=== PATIENT | male | born 1945 | race Caucasian/White ===

== ENCOUNTER → 2019-08-23 08:55 | Outpatient (CLI) | payer OTHER, SELFPAY ==
--- NOTE | 2019-08-23 09:05 | AAVD_ITS ---
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 in cross- Peak systolic flow velocities within the proximal sectional axis. aorta measure 55.4 cm/sec. Proximal aorta measures2.72cm. in longitudinal Peak systolic flow velocities within the mid aorta axis. measure 93.5 cm/sec. Mid aorta measures2.83 x 3.25cm. in cross- Peak systolic flow velocities within the distal sectional axis. aorta measure 73.7 cm/sec. Mid aorta measures3.17cm. in longitudinal axis. Distal aorta measures2.88 x 2.88cm. in cross- sectional axis. Distal aorta measures2.86cm. in longitudinal axis. Left Iliac Artery Left iliac artery measures 1.85 x 1.85 cm. in the cross-sectional axis. Left iliac artery measures 1.89 cm. in the longitudinal axis. Peak systolic velocity in the left iliac artery measures 100 cm/sec. Right Iliac Artery Right iliac artery measures 1.20 x 1.15 cm. in the cross-sectional axis. Right iliac artery measures 1.15 cm. in the longitudinal axis. Peak systolic velocity in the right iliac artery measures 75.9 cm/sec. Procedure Aorta IVC Iliac vasculature or bypass grafts [id number]. Exam performed in department. Interpretation Summary The intra-abdominal aorta is aneurysmal, with a maximal diameter of 3.25 centimeters. The right common iliac artery is ectatic. The left common iliac artery is normal in caliber. The intra- abdominal aorta and iliac arteries appear patent, demonstrating normal, pulsatile arterial flow and normal peak systolic velocities. Ordering Physician: REED STAUFFER Referring Physician: [facility] Performed By: Latoya Montoya RVT
--- NOTE | 2019-08-23 09:05 | ART_ITS ---
Reason For Study: Swelling Procedure A bilateral lower extremity continuous wave Doppler with analog waveform analysis,segmental pressures,and ankle brachial indexes without exercise. Left Segmental Pressures Left brachial= 132mmHg. Left posterior tibial artery = 160mmHg. Left dorsalis pedis artery = 160mmHg. The left posterior tibial artery waveforms are triphasic. The left dorsalis pedis waveforms are triphasic. Right Segmental Pressures Right brachial= 137mmHg. Right posterior tibial artery = 170mmHg. Right dorsalis pedis artery = 158mmHg. The right posterior tibial artery waveforms are triphasic. The right dorsalis pedis waveforms are triphasic. Indices The right ankle brachial index by the posterior tibial artery is 1.24. The right ankle brachial index by the dorsalis pedis is 1.15. The left ankle brachial index by the posterior tibial artery is 1.17. The left ankle brachial index by the dorsalis pedis is 1.17. Interpretation Summary Triphasic Doppler waveforms are noted at ankle level bilaterally. Pulse-volume recordings appear satisfactory at all levels bilaterally, including low-thigh, calf, ankle, and digital levels. Resting ankle-brachial indices are normal bilaterally. There is no evidence of significant arterial occlusive disease in the lower extremities bilaterally. Ordering Physician: REED STAUFFER Referring Physician: REED STAUFFER Performed By: Taylor Daigle RVT, RDCS and Student
== END ==
DX: I71.4 Abdominal aortic aneurysm, without rupture (principal); M79.89 Other specified soft tissue disorders; I72.3 Aneurysm of iliac artery; Z87.891 Personal history of nicotine dependence; I10 Essential (primary) hypertension; Z13.89 Encounter for screening for other disorder
CPT/HCPCS: 93923; 93978

== ENCOUNTER → 2021-04-29 08:52 | Outpatient (CLI) | payer OTHER, SELFPAY ==
--- NOTE | 2021-04-29 08:59 | AAVD_ITS ---
Reason For Study: Aortic aneurysm surveillance Aorta Measurements Aorta Doppler Measurements Proximal aorta measures1.94 x 1.94cm. in cross- Peak systolic flow velocities within the proximal sectional axis. aorta measure 82.6 cm/sec. Proximal aorta measures1.90cm. in longitudinal Peak systolic flow velocities within the mid aorta axis. measure 137.9 cm/sec. Mid aorta measures3.25 x 3.67cm. in cross- Peak systolic flow velocities within the distal sectional axis. aorta measure 80.8 cm/sec. Mid aorta measures3.23cm. in longitudinal axis. Distal aorta measures2.29 x 2.29cm. in cross- sectional axis. Distal aorta measures2.30cm. in longitudinal axis. Left Iliac Artery Left iliac artery measures 1.71 x 1.75 cm. in the cross-sectional axis. Left iliac artery measures 1.69 cm. in the longitudinal axis. Peak systolic velocity in the left iliac artery measures 86 cm/sec. Right Iliac Artery Right iliac artery measures 1.03 x 1.03 cm. in the cross-sectional axis. Right iliac artery measures 1.08 cm. in the longitudinal axis. Peak systolic velocity in the right iliac artery measures 111.9 cm/sec. Procedure Aorta IVC Iliac vasculature or bypass grafts [id number]. Exam performed in department. VL/Abd Aortic/IVC Duplex scan Interpretation Summary The intra-abdominal aorta is aneurysmal, with a maximum diameter of 3.67 centim eters. This represents a slight increase from a previous maximal diameter of 3.25 centimete rs on 08/23/2019. The right iliac artery is normal in caliber. The left iliac artery is ectatic. The intra-abdominal aorta and iliac arteries appear patent, demonstrating normal, pulsatile arterial flow and normal peak systolic velocities. Ordering Physician: Teja Noble Referring Physician: [facility] Performed By: Latoya Montoya RVT
== END ==
DX: S35.0 Injury of abdominal aorta (principal)
CPT/HCPCS: 93978

== ENCOUNTER 2021-10-25 11:17 | Emergency (ER) | payer OTHER, SELFPAY ==
[2021-10-25 11:18] VITALS: BP 165/85; PULSE 88; RESP 18; TEMP 36.1; O2SAT 98; BMI 37.1
--- NOTE | 2021-10-25 11:52 | CT_ITS ---
STUDY: CT ABDOMEN AND PELVIS WITH CONTRAST REASON FOR EXAM: Male, 76 years old. rlq abdominal pain -- IV PO Contrast RADIATION DOSAGE (If Supplied By Facility): CTDIvol = ( 16.89 ) mGy, DLP = ( 1162.58 ) mGycm TECHNIQUE: Transaxial images were obtained from the dome of the diaphragm to the symphysis pubis with oral contrast. Oral and amp; IV Gastrografin and amp; 100mL Isovue-300 was administered. Sagittal and coronal images were reconstructed. Individualized dose optimization techniques were used for this CT. COMPARISON: None. FINDINGS: There are chronic interstitial fibrotic changes of the lung bases. Normal liver. No intrahepatic biliary duct dilatation or liver mass. Normal gallbladder and extrahepatic biliary system. Normal spleen. Normal pancreas. Normal bilateral adrenal glands. Mild right hydronephrosis and hydroureter are present due to a distal obstructing 2 mm stone which is near the right UVJ, see image #89/117 series 2. Mild perinephric and periureteral inflammatory stranding is also present on the right. No additional radiopaque stones are seen in either kidney. Normal left kidney. Central abdominal mesenteric cyst subcentimeter lymphadenopathy is present as well as some mild inflammatory stranding likely due to chronic disease. Normal visualized stomach. Normal small intestine. There are multiple colonic diverticula consistent with diverticulosis. No bowel dilatation or obstruction. No free air or free fluid. There is non-visualization of the appendix. There is diffuse atherosclerotic calcification of the abdominal aorta. AA saccular aneurysm of the distal abdominal aorta, projecting on the left measures 4 cm in diameter. Normal inferior vena cava. Normal retroperitoneum. The bladder diehl are mildly trabeculated but this may be related to underdistention as only a small amount of fluid is present. Normal abdominal wall. Small to moderate size right inguinal fat-containing hernia noted. There are diffuse degenerative changes of the visualized lumbar spine. CT/Abdomen/Pelvis WITH Contrast IMPRESSION: 1. Mild right hydronephrosis and hydroureter are present due to a distal obstructing 2 mm stone which is near the right UVJ, see image #89/117 series 2. Mild perinephric and periureteral inflammatory stranding is also present on the right. No additional radiopaque stones are seen in either kidney. 2. 4 cm distal abdominal aortic aneurysm Electronically Signed: Skyler Sweet MD at 14:01 EDT ,
--- NOTE | 2021-10-25 11:53 | EDS_ITS ---
HPI HPI - GI History of Present Illness Chief Complaint: Abd Pain Narrative Narrative: 76-year-old male presenting with abdominal pain. He describes it as right lower quadrant abdominal pain currently. He has had constipation for the last 2 days. He is taking Dulcolax and MiraLAX its not helping. Patient is passing gas. He is not had a fever or chills. He states he felt nauseous earlier but is not nauseous now. Patient does note that 2 days ago he could not urinate for 18 hours and was in the emergency room but left prior to being seen. He is able to urinate now. He does not have any back pain or paresthesias. He has history of umbilical hernia repair distantly. He is not felt a pop prior to the onset of the pain. He does not note any masses. He states he is also had left inguinal hernia repair. He denies other abdominal surgeries. PFSH PFSH Medical History no medical history Home Medications ondansetron 4 mg disintegrating tablet 4 mg PO Q8H PRN nausea and vomiting #10 tabs 10/25/21 [Rx Last Taken Unknown] oxycodone-acetaminophen 5 mg-325 mg tablet (Percocet) 1 tab PO Q6H PRN pain 3 days #12 tabs 10/25/21 [Rx Last Taken Unknown] Allergy/AdvReac Type Severity Reaction Status Date / Time No Known Allergies Allergy Verified 10/25/21 11:18 Surgical History no surgical history Social History Smoking Status: Never smoker ROS ROS ED Constitutional Constitutional ED: Denies chills or subjective ENT ENT ED: Denies rhinorrhea Cardiovascular Cardiovascular: Denies chest pain or palpitations Respiratory/Chest Respiratory/Chest: Denies cough or dyspnea Gastrointestinal Gastrointestinal: Reports abdominal pain, constipation and nausea; Denies diarrhea Genitourinary Genitourinary ED: Denies dysuria or hematuria Musculoskeletal Musculoskeletal: Denies arthralgias or back pain Integumentary Denies abscess or Abrasions Neurologic Neurologic: Denies headache(s) or paresthesias Psychiatric Psychiatric: Denies anxiety or depression EXAM Physical Exam Const Vital Signs: 10/25/21 11:18 Temperature 97.0 F L Temperature Source Temporal Pulse Rate 88 Respiratory Rate 18 Blood Pressure 165/85 H Blood Pressure Mean 111 Pulse Ox 98 Oxygen Delivery Method Room Air Positive well nourished General Appearance ED: NAD; Negative for pallor HEENT Reports moist mucous membranes normocephalic and atraumatic Eyes PERRL and EOMs intact bilaterally Resp normal respiratory effort and clear to auscultation bilaterally Cardio regular rate and regular rhythm GI GI Narrative: Abdomen appears distended. No fluid wave. Palpation: tender RLQ Back/Spine no CVA tenderness Neuro CN's II-XII intact bilaterally Sensorium / Orientation: alert Motor Exam: strength 5/5 throughout Psych mental status grossly normal Skin General Skin Exam: Negative for jaundice or pallor MDM MDM MDM Narrative Medical decision making narrative: Patient presenting with right-sided abdominal pain. He states this feels achy in nature. He had nausea but not currently. He does report that he had the inability to urinate a couple of days ago but now he can void at well. Patient initially did not want anything for pain or nausea but then he had an episode of pain and nausea and was medicated with morphine and Zofran. IV fluids were given. CBC shows no leukocytosis. Hemoglobin hematocrit are stable. Creatinine is 1.35 today and I do not have a comparison. Electrolytes within normal limits. LFTs are normal. Urinalysis returned with 250 occult blood, negative nitrites, 25 leukocyte esterase. No evidence of infection. CT of the abdomen pelvis with p.o. and IV contrast reveals a 4 cm abdominal aortic aneurysm which the patient knows about. It also shows a distal ureteral stone kidney stone on the right measuring 2 mm with mild right-sided hydronephrosis and hydroureter. I think at this size it should pass. Patient was counseled on findings. Patient has no history of kidney stones will be referred to urology. His states that she can buy magnesium citrate [id number] for his constipation. I did career and guidance counselor him that the pain medication he received today and that we will see for home may worsen this problem. It is possible that the patient passed a kidney stone a couple of days ago and this is why he could not urinate. At this point he stable for discharge. Impression: 1. Abdominal pain 2. Constipation 3. 4 cm abdominal aortic aneurysm 4. 2 mm right ureteral stone 5. Right sided hydronephrosis 6. Hematuria Lab Data Attestation: I reviewed the patient's lab results. Labs: Laboratory Results - last 24 hr 10/25/21 10/25/21 10/25/21 11:40 11:40 12:45 WBC 10.5 RBC 4.79 Hgb 15.8 Hct 47.8 MCV 99.8 H MCH 33.0 H MCHC 33.1 RDW Std Deviation 50.6 H RDW Coeff of Johnathon 13.7 Plt Count 184 MPV 11.2 Immature Gran % (Auto) 0.300 Neut % (Auto) 73.6 H Lymph % (Auto) 15.8 L [place] % (Auto) 9.0 Eos % (Auto) 0.8 Baso % (Auto) 0.5 Absolute Neuts (auto) 7.8 H Absolute Lymphs (auto) 1.67 Nucleated RBC % 0 Sodium 142 Potassium 4.3 Chloride 106 Carbon Dioxide 28.0 Anion Gap 8 BUN 27 H Creatinine 1.35 H Estim Creat Clear Calc 44.20 Est GFR (MDRD) Af Amer 66 Est GFR (MDRD) Non-Af 55 L BUN/Creatinine Ratio 20.0 Glucose 128 H Calcium 10.1 Total Bilirubin 0.80 AST 22 ALT 32 Alkaline Phosphatase 66 Total Protein 7.7 Albumin 4.0 Globulin 3.7 Albumin/Globulin Ratio 1.1 Urine Color Yellow Urine Clarity Clear Urine pH 5.0 Ur Specific [place] 1.020 Urine Protein 15 H Urine Glucose (UA) Normal Urine Ketones Negative Urine Occult Blood 250 H Urine Nitrite Negative Urine Bilirubin Negative Urine Urobilinogen Normal Ur Leukocyte Esterase 25 H Urine RBC 0-5 SEEN Urine WBC 0 SEEN Ur Squamous Epith Cells 0 SEEN Urine Bacteria 0 SEEN Urine Mucus 0 SEEN Radiography Diagnostic Testing: Clinical Impression(s) from Imaging Studies Abdomen/Pelvis CT 10/25/21 11:52 IMPRESSION: 1. Mild right hydronephrosis and hydroureter are present due to a distal obstructing 2 mm stone which is near the right UVJ, see image #89/117 series 2. Mild perinephric and periureteral inflammatory stranding is also present on the right. No additional radiopaque stones are seen in either kidney. 2. 4 cm distal abdominal aortic aneurysm Electronically Signed: Skyler Sweet MD at 14:01 EDT Reading Location ID and State: [facility] / [place] , Service support , Discharge Plan Triage Chief Complaint: Abd Pain ED Provider: Gerber Saeed Dx/Rx/DC Orders Instructions: ED Kidney Stone w/ Colic Prescriptions: New oxycodone-acetaminophen [Percocet] 5-325 mg tablet 1 tab PO Q6H PRN (Reason: pain) 3 Days Qty: 12 0RF ondansetron 4 mg tablet,disintegrating 4 mg PO Q8H PRN (Reason: nausea and vomiting) Qty: 10 0RF [facility] Referrals: Kimo Burris MD [Med Staff - Active Staff] - As soon as possible [facility] [Primary Care Provider] - Disposition Disposition: Home, Self Care
[2021-10-25 12:07] LABS: Absolute Lymphocyte Count 1.67 X10^3/uL (0.83-4.51); Absolute Neutrophil Count 7.8 X10^3/uL (2.0-7.7); Basophil# 0.05 X10^3/uL; Basophil% 0.5 % (0-1); Eosinophil# 0.08 X10^3/uL; Eosinophils% 0.8 % (0-5); Hematocrit 47.8 % (40-54); Hemoglobin 15.8 g/dL (13.0-16.5); Lymphocyte # 1.67 X10^3/ul (0.83-4.51); Lymphocyte % 15.8 % (19-41); Mean Corp Hgb Conc 33.1 g/dL (32-36); Mean Corpuscular Volume 99.8 fL (80-94); Mean Platelet Vol. 11.2 fl (6.2-12.0); Monocyte# 0.95 X10^3/uL; NRBC Flagged by Analyzer 0 % (0-5); Neutrophil # 7.76 X10^3/uL (2.7-7.7); Neutrophil % 73.6 % (47-70); Platelet Count 184 K/mm3 (150-450); RBC Distribution Width CV 13.7 % (11.6-14.6); RBC Distribution Width SD 50.6 fl (35.1-43.9); Red Blood Count 4.79 M/mm3 (4.6-6.2); White Blood Count 10.5 K/mm3 (4.4-11.0)
[2021-10-25 12:24] LABS: ALB/GLOB Ratio 1.1 RATIO (0.9-2.4); AST(SGOT) 22 U/L (15-37); Alanine Aminotransfer ALT/SGPT 32 U/L (16-61); Alkaline Phosphatase 66 U/L (45-117); Anion Gap 8 (5-15); BUN 27 mg/dL (7-18); Calcium,Total 10.1 mg/dL (8.5-10.1); Chloride 106 mmol/L (98-107); Creatinine, Serum 1.35 mg/dL (0.70-1.30); EST Glomerular Filtration Rate 55 mL/min (>60); Est Glom Filt Rate - Afr Amer 66 mL/min (>60); Globulin 3.7 g/dL (2.2-4.2); Glucose 128 mg/dL (74-106); Potassium 4.3 mmol/L (3.5-5.1); Protein, Total 7.7 g/dL (6.4-8.2); Sodium Level 142 mmol/L (136-145)
[2021-10-25] MEDS: Morphine 4 MG/ML Syringe IV (12:44)
[2021-10-25] MEDS: Ondansetron 4 MG/2 ML Vial IV (12:44)
[2021-10-25] MEDS: 0.9% Normal Saline 1,000 ML 999 ML IV (12:44)
[2021-10-25 12:57] LABS: Bacteria 0 SEEN /hpf (None Seen); Mucous, Urine 0 SEEN /hpf (<or=2+); Squamous Epithelial Cells - UA 0 SEEN /hpf (0-5); White Blood Cells 0 SEEN /hpf (0-5)
[2021-10-25 13:14] LABS: Color, Urine Yellow (Yellow); Glucose, Dipstick Normal (Normal); Ketone-Dipstick Negative (Negative); Leukocyte Esterase-Dipstick 25 /ul (Negative); Nitrite-Dipstick Negative (Negative); Occult Blood-Urine 250 /ul (Negative); Protein-Dipstick 15 mg/dl (Negative); Urine Bilirubin Dipstick Negative (Negative); Urine Clarity Clear (Clear); Urine Urobilinogen Normal (Normal)
[2021-10-25 13:21] LABS: Red Blood Cells-Urine 0-5 SEEN /hpf (0-5)
[2021-10-25 15:09] VITALS: BP 140/87; PULSE 87; RESP 16; O2SAT 99
== END 2021-10-25 15:19 | disposition home or self-care (01) ==
PROVIDERS: Emergency Provider Student in an Organized Health Care Education/Training Program; Visit Provider Student in an Organized Health Care Education/Training Program
DX: R10.9 Unspecified abdominal pain (principal); I71.4 Abdominal aortic aneurysm, without rupture; N13.2 Hydronephrosis with renal and ureteral calculous obstruction; N13.4 Hydroureter; K59.00 Constipation, unspecified; R31.9 Hematuria, unspecified
CPT/HCPCS: 74177; 80053; 81001; 85025; 99283; J7030; Q9967; A4216; J2405

== ENCOUNTER 2022-06-16 08:53 | Outpatient (CLI) | payer OTHER, SELFPAY ==
--- NOTE | 2022-06-16 08:56 | AAVD_ITS ---
Reason For Study: AAA Aorta Measurements Aorta Doppler Measurements Proximal aorta measures2.55 x 2.64cm. in cross- Peak systolic flow velocities within the proximal sectional axis. aorta measure 66.9 cm/sec. Proximal aorta measures2.55cm. in longitudinal Peak systolic flow velocities within the mid aorta axis. measure 147.5 cm/sec. Mid aorta measures3.67 x 3.76cm. in cross- Peak systolic flow velocities within the distal sectional axis. aorta measure 131.9 cm/sec. Mid aorta measures3.57cm. in longitudinal axis. Distal aorta measures2.44 x 2.43cm. in cross- sectional axis. Distal aorta measures2.44cm. in longitudinal axis. Left Iliac Artery Left iliac artery measures 1.73 x 1.71 cm. in the cross-sectional axis. Left iliac artery measures 1.72 cm. in the longitudinal axis. Peak systolic velocity in the left iliac artery measures 67.4 cm/sec. Right Iliac Artery Right iliac artery measures 1.13 x 1.13 cm. in the cross-sectional axis. Right iliac artery measures 1.08 cm. in the longitudinal axis. Peak systolic velocity in the right iliac artery measures 103.4 cm/sec. Procedure Aorta IVC Iliac vasculature or bypass grafts [id number]. Compared to 04/29/2021. Exam performed in department. VL/Abd Aortic/IVC Duplex scan Interpretation Summary Aorta patent, 3.76 cm aneurysm present Left iliac artery patent, 1.73 cm ectasia present Right iliac artery patent, normal caliber. Ordering Physician: JOSÉ LUIS DONALD Referring Physician: [facility] Performed By: Latoya Montoya RVT
== END 2022-06-16 23:59 | disposition home or self-care (01) ==
LOC: CVS 08:54
DX: I71.40 Abdominal aortic aneurysm, without rupture, unspecified (principal); I72.3 Aneurysm of iliac artery
CPT/HCPCS: 93978